=== PATIENT | male | born 1940 | race Caucasian/White ===

== ENCOUNTER → 2024-01-31 12:52 | Outpatient (REF) | payer MEDICARE, OTHER, SELFPAY | LOC: DHCBC HW 12:52 | PROVIDERS: ATTENDING PHYSICIAN Internal Medicine; FAMILY PHYSICIAN Internal Medicine Geriatric Medicine | DX: I25.5 Ischemic cardiomyopathy (principal); I10 Essential (primary) hypertension; I25.10 Atherosclerotic heart disease of native coronary artery without angina pectoris | CPT/HCPCS: 93306 ==

== ENCOUNTER → 2024-03-03 10:56 | Outpatient (REF) | payer MEDICARE, OTHER, SELFPAY ==
[2024-03-03 11:50] LABS: % Basophils 1.6 % (0-2); % Eosinophils 5.5 % (0-6); % Lymphocytes 22.9 % (20.5-51.1); % Monocytes 13.9 % (1.7-9.3); % Neutrophils 56.1 % (42.2-75.2); Absolute Basophils 0.1 10^3/uL (0-0.2); Absolute Eosinophils 0.2 10^3/uL (0-0.7); Absolute Lymphocytes 0.7 10^3/uL (1.2-3.4); Absolute Monocytes 0.4 10^3/uL (0.1-0.6); Absolute Neutrophils 1.7 10^3/uL (1.4-6.5); Hemoglobin 13.5 g/dL (13.0-18.0); Mean Corp Hgb Conc. 32.9 g/dL (33.0-37.0); Mean Corpuscular Hgb 29.9 pg (27.0-31.0); Mean Corpuscular Volume 90.7 fL (80.0-94.0); Mean Platelet Volume 10.6 fL (7.4-10.4); Nucleated Red Blood Cells % 0 % (-); Platelet Count 144 10^3/uL (130-400); Red Blood Cell Count 4.52 10^6/uL (4.70-6.10); Red Cell Dist. Width 13.2 % (11.5-14.5); White Blood Cell Count 3.1 10^3/uL (4.8-10.8)
[2024-03-03 12:26] LABS: ALT (SGPT) 20 U/L (0-50); AST (SGOT) 31 U/L (17-59); Alkaline Phosphatase 80 U/L (38-126); Blood Urea Nitrogen 19 mg/dl (9-20); Calcium 9.7 mg/dl (8.4-10.2); Carbon Dioxide 26 mmol/L (22-30); Chloride 104 mmol/L (98-107); Glucose 156 mg/dl (70-99); HDL Cholesterol 50 mg/dl; LDL Cholesterol, Calculated 48 mg/dl; Potassium 4.3 mmol/L (3.5-5.1); Sodium 139 mmol/L (135-145); Total Bilirubin 0.6 mg/dl (0.2-1.3); Total Cholesterol 130 mg/dl (50-199); Total Protein 6.6 g/dl (6.3-8.2); Triglyceride 164 mg/dl (10-149); Very Low Density Lipoprotein 32 mg/dl (0-30); eGFR > 60.00
[2024-03-03 12:55] LABS: PSA, Total - Diagnostic < 0.06 ng/ml (0.0-4.0)
[2024-03-03 12:56] LABS: Glycohemoglobin (HgbA1c) 6.6 % (4.0-5.6)
[2024-03-03 12:57] LABS: Testosterone, Total 19.9 ng/dl (72-623)
== END ==
LOC: REG 10:56
PROVIDERS: ATTENDING PHYSICIAN Internal Medicine; FAMILY PHYSICIAN Internal Medicine Geriatric Medicine
DX: I25.10 Atherosclerotic heart disease of native coronary artery without angina pectoris (principal); F41.1 Generalized anxiety disorder; E11.9 Type 2 diabetes mellitus without complications; I10 Essential (primary) hypertension; E78.2 Mixed hyperlipidemia; I48.0 Paroxysmal atrial fibrillation; I49.5 Sick sinus syndrome; Z95.0 Presence of cardiac pacemaker; H25.89 Other age-related cataract; C61 Malignant neoplasm of prostate; K62.7 Radiation proctitis; Z13.89 Encounter for screening for other disorder; K22.70 Barrett's esophagus without dysplasia; D50.0 Iron deficiency anemia secondary to blood loss (chronic); G47.33 Obstructive sleep apnea (adult) (pediatric)
CPT/HCPCS: 36415; 80053; 80061; 83036; 84153; 84403; 84681; 85025

== ENCOUNTER → 2024-03-18 06:23 | Day surgery (SDC) | payer MEDICARE, BC, SELFPAY ==
[2024-03-18 09:06] LABS: Glucose - Point of Care 164 mg/dl (70-99)
== END ==
LOC: GI 06:23
PROVIDERS: ATTENDING PHYSICIAN Specialist
DX: K22.710 Barrett's esophagus with low grade dysplasia (principal); Z53.8 Procedure and treatment not carried out for other reasons; R03.0 Elevated blood-pressure reading, without diagnosis of hypertension
CPT/HCPCS: 43235; 82962; G0378

== ENCOUNTER 2024-06-01 14:57 | Emergency (ER) | payer MEDICARE, BC, SELFPAY ==
[2024-06-01 15:05] VITALS: BP 122/70
--- NOTE | 2024-06-01 17:30 | ED.GENMED ---
History of Present Illness
General
Chief Complaint: Fall
Time Seen by Provider: 06/01/24 17:26
History of Present Illness
History of Present Illness:
83-year-old female presents the emergency department for evaluation of right chest wall/flank pain beginning after falling into his kitchen table yesterday. Pain is worse with movement or with deep breathing. Denies any hematuria or abdominal
bruising. Does not take any blood thinners
Past History
Past History
ED Past Medical History: CAD, Cancer (Prostate), HTN, NIDDM, Psychiatric and Other (DIABETES, atrial flutter with ablation, TIA, hyperlipidemia, polio with postpolio syndrome, obstructive sleep apnea, bipolar disorder)
ED Past Surgical History: Cardiac (Bypass surgery pacemaker stent in 2008) and Orthopedic
Social History
Tobacco: Non-smoker
Alcohol: None
Drug: None
Personal:
Living: with family
Employment: Retired
Family History
Family History: Other (Noncontributory)
Review of Systems
Review of Systems
Allergies reviewed?: Yes
All Other Systems: ROS reviewed and negative except as documented in HPI and ROS
Phy Exam
Physical Exam
Physical Exam:
GEN: Well appearing, NAD, WDWN
HEENT: Oral mucosa moist, no scleral icterus
Cardiac: Regular rate
Lung: No respiratory distress, no tachypnea, lungs clear to auscultation bilaterally
Chest: No obvious ecchymosis or deformities. There is tenderness to the right inferior/posterior chest wall
MSK: No gross deformity or injuries
Skin: Good color, no pallor or jaundice, no rashes
Neuro: AO x3, moves all extremities freely
Psych: Calm, cooperative
Course
Orders/Labs/Results
Orders:
Orders
06/01/24 17:30
CR Ribs-right 3 Vw W/pa Chest* Urgent
Comment:
Reason For Exam: R rib injury
06/01/24 17:59
Acetaminophen [Tylenol] 650 mg PO NOW STA
Lidocaine [Lidocaine 4% Patch] 1 patch TOPICAL NOW STA
Apply Lidocaine patch(s) to:: R flank
06/01/24 18:15
Ketorolac [Toradol] 30 mg IM NOW STA
Oxycodone [Roxicodone] 5 mg PO NOW STA
06/01/24 19:08
CT Chest W/o Iv Contrast Urgent
Comment:
Reason For Exam: R chest wall injury
06/01/24 22:26
Oxycodone [Roxicodone] 5 mg PO NOW STA
Vital Signs
Initial and Last Documented VS:
Initial Vital Signs
Temp Pulse Resp Pulse Ox
97.5 F 76 20 96
06/01/24 14:59 06/01/24 14:59 06/01/24 14:59 06/01/24 14:59
Last Documented Vital Signs
Temp Pulse Resp BP Pulse Ox
97.5 F 75 18 123/78 95
06/01/24 14:59 06/01/24 19:07 06/01/24 19:07 06/01/24 19:07 06/01/24 19:07
MDM/Problems Addressed
MDM/Problems Addressed:
83 yo male presents with right leg pain after a fall. He was identified to have 2 nondisplaced rib fractures.
No e/o Pneumothorax. Discussed supportive care, patient is amenable to discharge to home and does not wish to be admitted for pain control
*Critical Care Note
Total Time (30-74mins, 75-104mins- exclusive of procedures): Not Applicable
ED Attending Note
-
Portions of this chart may have been created with voice recognition software.� Occasional wrong word or��sound alike� substitutions may have occurred due to the inherent limitations of voice recognition software.
Discharge Plan
Departure
Patient Disposition: Home (Routine Discharge)
Date of Disposition: 06/01/24
Time of Disposition: 22:32
Patient with high blood pressure during this ER visit?: No
Discharge Problem:
Right rib fracture
Instructions: Rib fractures in adults
Prescriptions:
New
oxycodone 5 mg tablet
5 mg PO Q8H PRN (Reason: Pain) Qty: 10 0RF
No Action
rabeprazole [AcipHex] 20 MG tablet,delayed release (DR/EC)
20 mg PO BID
quetiapine 100 MG tablet
150 mg PO HS
rosuvastatin 20 MG tablet
20 mg PO QPM
alprazolam 1 MG tablet extended release 24 hr
1 mg PO DAILY
bupropion HCl 150 MG tablet extended release 24 hr
300 mg PO DAILY
Victoza 18mg/3ml
12 unit SC DAILY
aspirin [Catrachita Chewable Aspirin] 81 MG tablet,chewable
81 mg PO HS
L.acidoph, paracasei,B. lactis 1 EACH capsule
1 ea PO DAILY
ascorbic acid (vitamin C) [Vitamin C] 1,000 mg Tablet
2 g PO QPM
alprazolam 1 mg Tablet
1 mg PO HS
lamotrigine 150 mg Tablet
300 mg PO QPM
cyanocobalamin (vitamin B-12) [Vitamin B-12] 1,000 mcg Tablet
1,000 mcg PO QPM
nitroglycerin 0.4 mg Tablet, Sublingual
0.4 mg SUBLINGUAL Q5-15M PRN (Reason: chest pain)
Patient Comments:
patient has never had to use this medication
metoprolol succinate 25 mg Tablet Extended Release 24 Hr
25 mg PO QPM
Humulin 70/30 U-100 KwikPen 100 unit/mL (70-30) Insulin Pen
12 unit SC BID
cholecalciferol (vitamin D3) [Vitamin D3] 25 mcg (1,000 unit) Tablet
1,000 unit PO QPM
Farxiga 10 mg Tablet
10 mg PO DAILY
Fibertabs Citracel
2 tab PO QPM
vitamin A
1 tab PO QPM
Activity Restrictions/Additional Instructions:
Incentive spirometer use 3-5 times per day for 1-2 weeks
Interventions
Interventions:
*Risk Screen - Suicide Last Done: 06/01/24 14:59
*General Assessment Last Done: 06/01/24 14:59
*Neglect/Abuse Screening Last Done: 06/01/24 14:59
ED-Musculoskeletal Assessment Last Done: 06/01/24 17:15
ED- Neurological Assessment Last Done: 06/01/24 17:15
ED-Skin Assessment Last Done: 06/01/24 17:15
Discharge Date and Time
Print Language: CITIZEN OF [place]
[2024-06-01] MEDS: TYLENOL 650 MG PO (18:05)
[2024-06-01] MEDS: LIDOCAINE 4% PATCH 1 PATCH TOPICAL (18:05)
[2024-06-01] MEDS: ROXICODONE 5 MG PO ×2 (18:20→22:38)
[2024-06-01] MEDS: TORADOL 30 MG IM (18:20)
[2024-06-01 19:07] VITALS: BP 123/78
== END 2024-06-01 23:13 | disposition home or self-care (01) ==
LOC: EMR 14:57
PROVIDERS: EMERGENCY PHYSICIAN Emergency Medicine; FAMILY PHYSICIAN Internal Medicine Geriatric Medicine
DX: S22.41XA Multiple fractures of ribs, right side, initial encounter for closed fracture (principal); M79.604 Pain in right leg; W01.190A Fall on same level from slipping, tripping and stumbling with subsequent striking against furniture, initial encounter; E11.9 Type 2 diabetes mellitus without complications; E78.5 Hyperlipidemia, unspecified; I10 Essential (primary) hypertension; G47.33 Obstructive sleep apnea (adult) (pediatric); F31.9 Bipolar disorder, unspecified; I25.10 Atherosclerotic heart disease of native coronary artery without angina pectoris; I48.92 Unspecified atrial flutter; G14 Postpolio syndrome; Z95.0 Presence of cardiac pacemaker; Z95.5 Presence of coronary angioplasty implant and graft; Z95.1 Presence of aortocoronary bypass graft; Z85.46 Personal history of malignant neoplasm of prostate; Z86.73 Personal history of transient ischemic attack (TIA), and cerebral infarction without residual deficits; Z88.0 Allergy status to penicillin; Z88.2 Allergy status to sulfonamides; Z88.8 Allergy status to other drugs, medicaments and biological substances; Z88.6 Allergy status to analgesic agent; Z91.041 Radiographic dye allergy status
CPT/HCPCS: 99284; 96372; 71101; 71250

== ENCOUNTER 2024-06-24 06:19 | Day surgery (SDC) | payer MEDICARE, BC, SELFPAY ==
[2024-06-24 08:31] VITALS: BMI 31.5
[2024-06-24 08:44] VITALS: BP 126/79
[2024-06-24 08:55] LABS: Glucose - Point of Care 134 mg/dl (70-99)
[2024-06-24 09:12] VITALS: BMI 31.5
[2024-06-24 10:05] VITALS: BP 108/70
[2024-06-24 10:15] VITALS: BP 116/65
[2024-06-24 10:30] VITALS: BP 132/69
== END 2024-06-24 11:00 | disposition home or self-care (01) ==
LOC: SDS 06:19
PROVIDERS: ATTENDING PHYSICIAN Specialist
DX: C15.9 Malignant neoplasm of esophagus, unspecified (principal); K22.711 Barrett's esophagus with high grade dysplasia
CPT/HCPCS: 43239; 88305; 82962

== ENCOUNTER → 2024-07-17 15:32 | Outpatient (REF) | payer MEDICARE, BC, SELFPAY ==
[2024-07-17 16:34] LABS: % Basophils 1.4 % (0-2); % Eosinophils 3.6 % (0-6); % Immature Granulocytes 0.3 % (0-0.5); % Lymphocytes 15.7 % (20.5-51.1); Absolute Basophils 0.1 10^3/uL (0-0.2); Absolute Eosinophils 0.1 10^3/uL (0-0.7); Absolute Lymphocytes 0.6 10^3/uL (1.2-3.4); Absolute Monocytes 0.5 10^3/uL (0.1-0.6); Absolute Neutrophils 2.4 10^3/uL (1.4-6.5); Hematocrit 43.8 % (39.0-52.0); Hemoglobin 14.1 g/dL (13.0-18.0); Mean Corp Hgb Conc. 32.2 g/dL (33.0-37.0); Mean Corpuscular Hgb 29.1 pg (27.0-31.0); Mean Corpuscular Volume 90.5 fL (80.0-94.0); Mean Platelet Volume 10.6 fL (7.4-10.4); Nucleated Red Blood Cells % 0 % (-); Platelet Count 136 10^3/uL (130-400); Red Blood Cell Count 4.84 10^6/uL (4.70-6.10); Red Cell Dist. Width 13.9 % (11.5-14.5); White Blood Cell Count 3.6 10^3/uL (4.8-10.8)
[2024-07-17 17:13] LABS: ALT (SGPT) 14 U/L (0-50); AST (SGOT) 28 U/L (17-59); Alkaline Phosphatase 96 U/L (38-126); Blood Urea Nitrogen 18 mg/dl (9-20); Calcium 9.9 mg/dl (8.4-10.2); Carbon Dioxide 28 mmol/L (22-30); Chloride 102 mmol/L (98-107); Direct Bilirubin 0.2 mg/dl (0.0-0.4); Glucose 73 mg/dl (70-99); Potassium 4.4 mmol/L (3.5-5.1); Sodium 141 mmol/L (135-145); Total Bilirubin 0.5 mg/dl (0.2-1.3); Total Protein 6.7 g/dl (6.3-8.2); eGFR > 60.00
[2024-07-17 17:39] LABS: CEA 1.39 ng/ml
== END ==
LOC: REG 15:32
PROVIDERS: ATTENDING PHYSICIAN Internal Medicine Hematology & Oncology; FAMILY PHYSICIAN Internal Medicine Geriatric Medicine
DX: C15.5 Malignant neoplasm of lower third of esophagus (principal)
CPT/HCPCS: 36415; 80048; 80076; 82378; 85025

== ENCOUNTER → 2024-08-04 13:36 | Outpatient (REF) | payer MEDICARE, BC, SELFPAY ==
[2024-08-04 15:43] LABS: PSA, Total - Diagnostic < 0.06 ng/ml (0.0-4.0)
[2024-08-04 15:46] LABS: Testosterone, Total 22.1 ng/dl (72-623)
== END ==
LOC: REG 13:36
PROVIDERS: ATTENDING PHYSICIAN Radiology Radiation Oncology; FAMILY PHYSICIAN Internal Medicine Geriatric Medicine
DX: C61 Malignant neoplasm of prostate (principal)
CPT/HCPCS: 36415; 84153; 84403

== ENCOUNTER → 2025-02-16 15:08 | Outpatient (REF) | payer MEDICARE, OTHER, SELFPAY | LOC: HWRCS 15:08 | PROVIDERS: ATTENDING PHYSICIAN Internal Medicine; FAMILY PHYSICIAN Internal Medicine Geriatric Medicine | DX: I25.810 Atherosclerosis of coronary artery bypass graft(s) without angina pectoris (principal); I25.5 Ischemic cardiomyopathy; I48.21 Permanent atrial fibrillation; I77.810 Thoracic aortic ectasia | CPT/HCPCS: 93306 ==

== ENCOUNTER → 2025-02-24 13:17 | Outpatient (REF) | payer MEDICARE, OTHER, SELFPAY ==
[2025-02-24 14:15] LABS: Urine Albumin 2+ (Neg - Trace); Urine Bilirubin Negative (Negative); Urine Character Clear (Clear); Urine Color Yellow; Urine Glucose 4+ (Negative); Urine Ketone Negative (Negative); Urine Leukocyte Negative (Negative); Urine Nitrite Negative (Negative); Urine Occult Blood Negative (Negative); Urine Specific Gravity 1.015 (<1.030); Urine Urobilinogen Negative (Neg - 1+)
[2025-02-24 14:33] LABS: % Basophils 1.2 % (0-2); % Eosinophils 5.1 % (0-6); % Lymphocytes 18.7 % (20.5-51.1); % Monocytes 13.6 % (1.7-9.3); % Neutrophils 61.4 % (42.2-75.2); Absolute Eosinophils 0.1 10^3/uL (0-0.7); Absolute Lymphocytes 0.5 10^3/uL (1.2-3.4); Absolute Monocytes 0.4 10^3/uL (0.1-0.6); Absolute Neutrophils 1.6 10^3/uL (1.4-6.5); Hematocrit 43.5 % (39.0-52.0); Hemoglobin 13.7 g/dL (13.0-18.0); Mean Corp Hgb Conc. 31.5 g/dL (33.0-37.0); Mean Corpuscular Volume 92.2 fL (80.0-94.0); Mean Platelet Volume 10.6 fL (7.4-10.4); Nucleated Red Blood Cells % 0 % (-); Platelet Count 131 10^3/uL (130-400); Red Blood Cell Count 4.72 10^6/uL (4.70-6.10); White Blood Cell Count 2.6 10^3/uL (4.8-10.8)
[2025-02-24 14:41] LABS: ALT (SGPT) 16 U/L (0-50); AST (SGOT) 24 U/L (17-59); Albumin 3.9 g/dl (3.5-5.0); Alkaline Phosphatase 80 U/L (38-126); Blood Urea Nitrogen 18 mg/dl (9-20); Calcium 9.9 mg/dl (8.4-10.2); Carbon Dioxide 31 mmol/L (22-30); Chloride 104 mmol/L (98-107); Glucose 133 mg/dl (70-99); HDL Cholesterol 63 mg/dl; LDL Cholesterol, Calculated 63 mg/dl; Potassium 4.8 mmol/L (3.5-5.1); Sodium 144 mmol/L (135-145); Total Bilirubin 0.5 mg/dl (0.2-1.3); Total Cholesterol 146 mg/dl (50-199); Total Protein 6.6 g/dl (6.3-8.2); Triglyceride 100 mg/dl (10-149); Very Low Density Lipoprotein 20 mg/dl (0-30); eGFR > 60.00
[2025-02-24 14:45] LABS: Urine Squamous Cell 16-20 /LPF (Few)
[2025-02-24 14:57] LABS: Vitamin D, 25-OH*** 29.5 ng/mL (30-80)
[2025-02-24 19:11] LABS: Microalbumin, Random Urine 9.6 mg/dl (0.6-1.7); Microalbumin/creatinine Ratio 157.1 mg/g
[2025-02-25 10:21] LABS: Glycohemoglobin (HgbA1c) 5.3 % (4.0-5.6)
== END ==
LOC: REG 13:17
PROVIDERS: ATTENDING PHYSICIAN Internal Medicine Geriatric Medicine
DX: E11.9 Type 2 diabetes mellitus without complications (principal); I48.0 Paroxysmal atrial fibrillation; I10 Essential (primary) hypertension; E78.2 Mixed hyperlipidemia; F41.1 Generalized anxiety disorder; I25.10 Atherosclerotic heart disease of native coronary artery without angina pectoris; I49.5 Sick sinus syndrome; Z95.0 Presence of cardiac pacemaker; C61 Malignant neoplasm of prostate; Z13.89 Encounter for screening for other disorder; K22.70 Barrett's esophagus without dysplasia; D50.0 Iron deficiency anemia secondary to blood loss (chronic); G47.33 Obstructive sleep apnea (adult) (pediatric); F32.4 Major depressive disorder, single episode, in partial remission; E29.1 Testicular hypofunction; I50.20 Unspecified systolic (congestive) heart failure
CPT/HCPCS: 36415; 80053; 80061; 81003; 81015; 82043; 82306; 82570; 83036; 85025

== ENCOUNTER → 2025-05-27 16:27 | Outpatient (REF) | payer MEDICARE, OTHER, SELFPAY | LOC: RAD 16:27 | PROVIDERS: ATTENDING PHYSICIAN Internal Medicine; FAMILY PHYSICIAN Internal Medicine Geriatric Medicine | DX: R60.9 Edema, unspecified (principal); I87.9 Disorder of vein, unspecified | CPT/HCPCS: 93971 ==

== ENCOUNTER 2025-07-23 12:28 | Outpatient (RCR) | payer MEDICARE, BC, SELFPAY | END 2025-07-23 23:59 | disposition home or self-care (01) | LOC: RPT 12:28 | PROVIDERS: ATTENDING PHYSICIAN Student in an Organized Health Care Education/Training Program; FAMILY PHYSICIAN Internal Medicine Geriatric Medicine | DX: M79.672 Pain in left foot (principal); M21.372 Foot drop, left foot; Z73.6 Limitation of activities due to disability; R26.2 Difficulty in walking, not elsewhere classified; M62.81 Muscle weakness (generalized); R26.89 Other abnormalities of gait and mobility; Z86.12 Personal history of poliomyelitis; R29.6 Repeated falls | CPT/HCPCS: 97162; 97530 ==

== ENCOUNTER 2025-07-27 15:04 | Emergency (ER) | payer MEDICARE, BC, SELFPAY ==
[2025-07-27 15:12] VITALS: BP 97/66
--- NOTE | 2025-07-27 19:23 | ED.MUSCINJ ---
HPI-Injury
General
Chief Complaint: Fall
Source: patient
Exam Limitations: none
Time Seen by Provider: 07/27/25 18:15
Nursing documentation reviewed up to this point in time: agreed with
History of Present Illness-Injury
Is this injury a work related problem?: No
Is pt an associate of [facility]?: No
Initial Injury comments:
Patient to ED after trip and fall walking into hospital He was bringing his to ED for evaluation and tripped. Hit head on floor. No LOC. Complains of pain to low back, right hip, and bilateral knees. Incident occurred just [employer]
Past History
Past History
ED Past Medical History: CAD, Cancer (Prostate), HTN, NIDDM, Psychiatric and Other (DIABETES, atrial flutter with ablation, TIA, hyperlipidemia, polio with postpolio syndrome, obstructive sleep apnea, bipolar disorder)
ED Past Surgical History: Cardiac (Bypass surgery pacemaker stent in 2008) and Orthopedic
Social History
Tobacco: Non-smoker
Alcohol: None
Drug: None
Personal:
Living: with family
Employment: Retired
Family History
Family History: Other (Noncontributory)
Review of Systems
Review of Systems
Allergies reviewed?: Yes
All Other Systems: ROS reviewed and negative except as documented in HPI and ROS
Constitutional: Reports no symptoms
EENT: Reports no symptoms
Respiratory: Reports no symptoms
Cardiac: Reports no symptoms
ABD/GI: Reports no symptoms
: Reports no symptoms
Musculoskeletal: Reports joint pain (pain to bilateral ant. knees, right hip)
Skin: Reports other (abrasions bilateral anterior knees)
Neurological: Reports no symptoms
Psychiatric: Reports no symptoms
Musculoskeletal Injury Exam
Musculoskeletal Injury Exam
Right Hip:
Pain with Movement?: Mild
Tender to palpation?: Mild
Soft tissue swelling?: None
External deformity and angulation?: None
Joint effusion?: None
Contusion?: None
Hematoma-local bleeding into tissue?: None
Strain- Sprain- Tear (Connective tissue injury)?: Mild
Crepitus with movement?: No
Joint instability?: No
Malalignment/deformity?: No
Range of motion: Full
Distal skin color and temperature: normal-warm & good color
Capillary Refill: normal
Normal distal neurovascular exam?: Yes
Bilateral Anterior Knee:
Pain with Movement?: Moderate
Tender to palpation?: Moderate
Soft tissue swelling?: Mild
External deformity and angulation?: None
Joint effusion?: None
Contusion?: Moderate
Hematoma-local bleeding into tissue?: Mild
Strain- Sprain- Tear (Connective tissue injury)?: None
Crepitus with movement?: No
Joint instability?: No
Malalignment/deformity?: No
Range of motion: Full
Distal skin color and temperature: normal-warm & good color
Capillary Refill: normal
Normal distal neurovascular exam?: Yes
Bilateral Lower Back:
Pain with Movement?: Moderate
Tender to palpation?: Mild
Soft tissue swelling?: None
External deformity and angulation?: None
Joint effusion?: None
Contusion?: None
Hematoma-local bleeding into tissue?: None
Strain- Sprain- Tear (Connective tissue injury)?: Moderate
Crepitus with movement?: No
Joint instability?: No
Malalignment/deformity?: No
Range of motion: Limited
Distal skin color and temperature: normal-warm & good color
Capillary Refill: normal
Normal distal neurovascular exam?: Yes
Phy Exam
General Physical Exam
General Presentation: well appearing and mild distress
General age: appears stated age
General Skin: warm and dry
General Habitus: normal
General Mental: alert
Cardiovascular Exam
Cardiovascular Exam: regular rate/rhythm and no edema
Pulmonary Exam
Pulmonary Exam: no respiratory distress and chest non tender
Neurological Exam
Neurological Exam: alert, oriented x3, CN II-XII intact, no motor deficits, no sensory deficits and speech normal
Musculoskeletal Exam
Musculoskeletal Exam: full ROM and neuro vasc intact
Skin Exam
Skin Exam: normal color, warm/dry and no rash
Psychiatric Exam
Psychiatric Exam: normal mood/affect
Injury Course
Orders/Labs/Results
Orders:
Orders
07/27/25 15:23
CT Head W/o Iv Contrast Urgent
Comment:
Reason For Exam: fall
CR Knee - Left 4 Or More View* Urgent
Comment:
Reason For Exam: fall
CR Knee- Right 4 Or More View* Urgent
Comment:
Reason For Exam: fall
CR Lumbar Spine Comp Min 4 Vw* Urgent
Comment:
Reason For Exam: fall
07/27/25 15:40
Hip, Right 2-3 Views [CR Hip - RT w/wo Pel 2-3 Vw*] Urgent
Comment:
Reason For Exam: fall
Include a pelvis x-ray?: Yes
*Radiology
Radiology exam reviewed: radiology read reviewed
*Pulse Oximetry
SaO2: 98
Oxygen Mode of Delivery: Room air
Patient hypoxic: no
*Critical Care Note
Total Time (30-74mins, 75-104mins- exclusive of procedures): Not Applicable
Update Note
Update Note:
Patient to ED after trip and fall while walking into hospital. VSS, CT head neg for acute findings. No fracture noted to back, hip, knees. Able to ambulate safely with walker. He has a walker at home. Will discharge home, will follow up with
PCP this week.
ED Attending Note
-
Portions of this chart may have been created with voice recognition software.� Occasional wrong word or��sound alike� substitutions may have occurred due to the inherent limitations of voice recognition software.
Discharge Plan
Departure
Patient Disposition: Home (Routine Discharge)
Date of Disposition: 07/27/25
Time of Disposition: 18:30
Patient with high blood pressure during this ER visit?: No
Condition: Good
Covid-19: Not Applicable
Discharge Problem:
Acute pain of right hip, Contusion of knee, Abrasion of knee
Instructions: Wound Care (DC), Head Injury in Adults (DC), Contusion (DC), Preventing falls in adults
Prescriptions:
New
oxycodone 5 mg capsule
5 mg PO Q8H PRN (Reason: Pain) Qty: 10 0RF
No Action
rabeprazole [AcipHex] 20 MG tablet,delayed release (DR/EC)
20 mg PO BID
quetiapine 100 MG tablet
150 mg PO HS
rosuvastatin 20 MG tablet
20 mg PO QPM
alprazolam 1 MG tablet extended release 24 hr
1 mg PO DAILY
bupropion HCl 150 MG tablet extended release 24 hr
300 mg PO DAILY
aspirin [Catrachita Chewable Aspirin] 81 MG tablet,chewable
81 mg PO HS
L.acidoph,paracasei,B.animalis 1 EACH capsule
1 ea PO DAILY
ascorbic acid (vitamin C) [Vitamin C] 1,000 mg Tablet
2 g PO QPM
alprazolam 1 mg Tablet
1 mg PO HS
lamotrigine 150 mg Tablet
300 mg PO QPM
cyanocobalamin (vitamin B-12) [Vitamin B-12] 1,000 mcg Tablet
1,000 mcg PO QPM
nitroglycerin 0.4 mg Tablet, Sublingual
0.4 mg SUBLINGUAL Q5-15M PRN (Reason: chest pain)
Patient Comments:
patient has never had to use this medication
Humulin 70/30 U-100 KwikPen 100 unit/mL (70-30) Insulin Pen
12 unit SC BID
cholecalciferol (vitamin D3) [Vitamin D3] 25 mcg (1,000 unit) Tablet
1,000 unit PO QPM
dapagliflozin propanediol [Farxiga] 10 mg Tablet
10 mg PO DAILY
Fibertabs Citracel
2 tab PO QPM
vitamin A
1 tab PO QPM
Ozempic
1 mg SC WEEKLY
Referrals:
Mitesh Roe MD [Active, Orthopedics] - Call in 1-3 days for appt
Interventions
Interventions:
*Risk Screen - Suicide Last Done: 07/27/25 15:12
*General Assessment Last Done: 07/27/25 15:12
*Neglect/Abuse Screening Last Done: 07/27/25 15:12
*ED- Fall Risk Assessment Last Done: 07/27/25 19:07
*ED COVID-19 Vaccine History Last Done: 07/27/25 18:57
*Nursing Disposition Last Done: 07/27/25 19:07
ED-Musculoskeletal Assessment Last Done: 07/27/25 18:56
ED- Neurological Assessment Last Done: 07/27/25 18:56
ED-Skin Assessment Last Done: 07/27/25 18:56
Discharge Date and Time
Discharge Date/Time: 07/27/25 19:08
Print Language: MAURITANIAN
== END 2025-07-27 19:08 | disposition home or self-care (01) ==
LOC: EMR 15:04
PROVIDERS: EMERGENCY PHYSICIAN Emergency Medicine; FAMILY PHYSICIAN Internal Medicine Geriatric Medicine
DX: M25.551 Pain in right hip (principal); S80.00XA Contusion of unspecified knee, initial encounter; S80.219A Abrasion, unspecified knee, initial encounter; W19.XXXA Unspecified fall, initial encounter; E11.9 Type 2 diabetes mellitus without complications; I25.810 Atherosclerosis of coronary artery bypass graft(s) without angina pectoris; I10 Essential (primary) hypertension; E78.5 Hyperlipidemia, unspecified; G47.33 Obstructive sleep apnea (adult) (pediatric); F31.9 Bipolar disorder, unspecified; G14 Postpolio syndrome; Z79.82 Long term (current) use of aspirin; Z79.4 Long term (current) use of insulin; Z79.84 Long term (current) use of oral hypoglycemic drugs; Z86.73 Personal history of transient ischemic attack (TIA), and cerebral infarction without residual deficits; Z95.1 Presence of aortocoronary bypass graft; Z95.0 Presence of cardiac pacemaker; Z95.5 Presence of coronary angioplasty implant and graft; Z85.46 Personal history of malignant neoplasm of prostate
CPT/HCPCS: 99284; 70450; 72110; 73502; 73564

== ENCOUNTER → 2025-08-06 09:21 | Outpatient (REF) | payer MEDICARE, BC, SELFPAY | LOC: DHSLP 09:21 | PROVIDERS: ATTENDING PHYSICIAN Internal Medicine Critical Care Medicine; FAMILY PHYSICIAN Internal Medicine Geriatric Medicine | DX: G47.33 Obstructive sleep apnea (adult) (pediatric) (principal); G47.61 Periodic limb movement disorder | CPT/HCPCS: 95811 ==

== ENCOUNTER 2025-09-03 08:36 | Outpatient (RCR) | payer MEDICARE, OTHER, SELFPAY | END 2025-09-03 23:59 | disposition home or self-care (01) | LOC: RPT 08:36 | PROVIDERS: ATTENDING PHYSICIAN Student in an Organized Health Care Education/Training Program; FAMILY PHYSICIAN Internal Medicine Geriatric Medicine | DX: M79.672 Pain in left foot (principal); M21.372 Foot drop, left foot; Z73.6 Limitation of activities due to disability; R26.2 Difficulty in walking, not elsewhere classified; M62.81 Muscle weakness (generalized); R26.89 Other abnormalities of gait and mobility; Z86.12 Personal history of poliomyelitis; R29.6 Repeated falls | CPT/HCPCS: 97110; 97112; 97530 ==

== ENCOUNTER 2025-09-24 08:17 | Outpatient (RCR) | payer MEDICARE, OTHER, SELFPAY | END 2025-09-24 23:59 | disposition home or self-care (01) | LOC: RPT 08:17 | PROVIDERS: ATTENDING PHYSICIAN Student in an Organized Health Care Education/Training Program; FAMILY PHYSICIAN Internal Medicine Geriatric Medicine | DX: M79.672 Pain in left foot (principal); M21.372 Foot drop, left foot; Z73.6 Limitation of activities due to disability; R26.2 Difficulty in walking, not elsewhere classified; M62.81 Muscle weakness (generalized); R26.89 Other abnormalities of gait and mobility; Z86.12 Personal history of poliomyelitis; R29.6 Repeated falls | CPT/HCPCS: 97110; 97112; 97530 ==

== ENCOUNTER 2025-09-24 12:27 | Emergency (ER) | payer MEDICARE, BC, SELFPAY ==
[2025-09-24] VITALS (10 sets, daily range): BP systolic 92–127; BP diastolic 44–91; PULSE 72–80
[2025-09-24 13:13] LABS: Hematocrit 41.9 % (39.0-52.0); Hemoglobin 13.4 g/dL (13.0-18.0); Mean Corp Hgb Conc. 32.0 g/dL (33.0-37.0); Mean Corpuscular Volume 89.0 fL (80.0-94.0); Nucleated Red Blood Cells % 0 % (-); Platelet Count 146 10^3/uL (130-400); Red Cell Dist. Width 13.2 % (11.5-14.5)
[2025-09-24 13:28] LABS: ALT (SGPT) 16 U/L (0-50); AST (SGOT) 23 U/L (17-59); Albumin 4.1 g/dl (3.5-5.0); Alkaline Phosphatase 79 U/L (38-126); Blood Urea Nitrogen 27 mg/dl (9-20); Calcium 9.4 mg/dl (8.4-10.2); Carbon Dioxide 28 mmol/L (22-30); Chloride 101 mmol/L (98-107); Glucose 140 mg/dl (70-99); Potassium 4.3 mmol/L (3.5-5.1); Sodium 133 mmol/L (135-145); Total Protein 7.2 g/dl (6.3-8.2); eGFR > 60.00
[2025-09-24] MEDS: NSS 1000 IV (15:19)
[2025-09-24 15:42] LABS: Urine Character Clear (Clear)
--- NOTE | 2025-09-24 15:50 | ED.GENMED ---
History of Present Illness
General
Chief Complaint: Blood Pressure Problem
Time Seen by Provider: 09/24/25 14:29
Nursing documentation reviewed up to this point in time: agreed with
History of Present Illness
History of Present Illness:
85-year-old male presents to the ER for evaluation of feeling lightheaded while at physical therapy today. Patient reports that his blood pressure is typically low but he states that he was very lightheaded and his systolic member was in 90s with
the diastolic in the 40s. Patient states he has been trying to be mindful of his fluid intake given his prior cardiac history. He is not on any diuretics. He states that his urine output has been decreasing over the past few days. No fevers. No
chills. No nausea or vomiting. Patient denies diarrhea. He denies peripheral edema. He denies chest pain. Patient was at physical therapy due to progressive weakness in his left lower extremity due to polio.
His prior medical history includes prior OR, CABG, pacer with Watchman device implantation, diabetes and chronic left lower extremity weakness.
Past History
Past History
ED Past Medical History: CAD, Cancer (Prostate), HTN, NIDDM, Psychiatric and Other (DIABETES, atrial flutter with ablation, TIA, hyperlipidemia, polio with postpolio syndrome, obstructive sleep apnea, bipolar disorder)
ED Past Surgical History: Cardiac (Bypass surgery pacemaker stent in 2008) and Orthopedic
Social History
Tobacco: Non-smoker
Alcohol: None
Drug: None
Personal:
Living: with family
Employment: Retired
Family History
Family History: Other (Noncontributory)
Review of Systems
Review of Systems
Allergies reviewed?: Yes
Phy Exam
Physical Exam
Physical Exam:
Patient is awake, alert, appears in no acute distress, head is NCAT, PERRL, EOMI mucous membranes tacky, conjunctiva pink, heart regular rate and rhythm without murmurs or ectopy, lungs are clear to auscultation without wheezes rales or rhonchi, no
JVD, abdomen is soft and nontender on palpation, extremities without edema, GCS is 15
Course
Orders/Labs/Results
Orders:
Orders
09/24/25 12:33
EKG [Electrocardiogram (*1)] Urgent
Reason for Study: Vertigo / Dizzy
EKG- Treatment ONCE
09/24/25 13:02
CBC/With Diff [Complete Blood Count/With Diff] Urgent
Comprehensive Metabolic Panel Urgent
09/24/25 14:30
0.9% Sodium Chloride 1000 ml [Nss] 1,000 ml IV BOLUS
09/24/25 15:27
Urinalysis Reflex To Culture Urgent
Date Specimen was Collected: 09/24/25
Time Specimen was Collected: 15:19
Urine Microscopic Reflex Cult Urgent
Abnormal Lab Results
09/24/25 09/24/25
13:02 15:27
WBC 4.1 L 10^3/uL
(4.8-10.8)
MCHC 32.0 L g/dL
(33.0-37.0)
MPV 10.5 H fL
(7.4-10.4)
Absolute Lymphs (auto) 0.6 L 10^3/uL
(1.2-3.4)
Lymphocytes % 13.3 L %
(20.5-51.1)
Monocytes % 11.6 H %
(1.7-9.3)
Sodium 133 L mmol/L
(135-145)
BUN 27 H mg/dl
(9-20)
Glucose 140 H mg/dl
(70-99)
Urine Glucose 4+ A
(Negative)
Urine Albumin (Reflex) 1+ A
(Neg - Trace)
09/24/25 13:02
09/24/25 13:02
Mild increase in BUN compared to labs from 02/24/2025. CBC reassuring. Kidney function preserved. Urinalysis does not reveal infection, glucose is in the urine without ketones.
Vital Signs
Initial and Last Documented VS:
Initial Vital Signs
Temp Pulse Resp BP Pulse Ox
97.3 F 73 16 105/91 98
09/24/25 12:31 09/24/25 12:31 09/24/25 12:31 09/24/25 12:31 09/24/25 12:31
Last Documented Vital Signs
Temp Pulse Resp BP Pulse Ox
97.3 F 77 19 127/88 98
09/24/25 12:31 09/24/25 17:45 09/24/25 17:45 09/24/25 17:38 09/24/25 17:00
MDM/Problems Addressed
Differential Diagnosis Includes:
Differential diagnosis considered but not limited to dehydration, electrolyte dyscrasia, occult infection along with other etiologies considered
Chronic conditions affecting care:
Polio, ACS, diabetes
*Pulse Oximetry
SaO2: 99
Oxygen Mode of Delivery: Room air
Patient hypoxic: no
*EKG
Interpreted by ED Provider?: Yes (I independently viewed and interpreted twelve-lead EKG showing paced rhythm, rate 73, leftward axis, no ST elevation, abnormal EKG without evidence for acute ischemia, no significant change compared to prior from
10/12/2023)
*Access Rep Interpretation
Rate: other (I independently viewed and interpreted rhythm strip showing paced rhythm, no ectopy)
*Critical Care Note
Total Time (30-74mins, 75-104mins- exclusive of procedures): Not Applicable
Data Reviewed
Review of Other/Old Records Reveals: Testing (I reviewed most recent echocardiogram from 02/16/2025-patient has normal LV chamber size and function with mildly decreased EF measured at 40%. Patient also has stage II diastolic dysfunction, aortic
sclerosis with mild regurg)
Update Note
Update Note:
Patient ordered IV fluids. He was given a meal tray. I discussed with patient and his labs concerning for mild dehydration, no other acute process. He was also able to void spontaneously which did not show significant concentration. Will
reassess ambulatory trial after IV fluids infused
1811: Patient feeling much better after IV fluid hydration. Able to ambulate without any recurrent lightheadedness. Blood pressure also improved-127/88. I discussed with patient and present at bedside plan for discharge home. They feel
comfortable with this plan and have no questions at the current time.
ED Attending Note
-
Portions of this chart may have been created with voice recognition software.� Occasional wrong word or��sound alike� substitutions may have occurred due to the inherent limitations of voice recognition software.
Discharge Plan
Departure
Patient Disposition: Home (Routine Discharge)
Date of Disposition: 09/24/25
Time of Disposition: 18:11
Patient with high blood pressure during this ER visit?: No
Discharge Problem:
Acute dehydration, Light-headedness
Instructions: Dehydration in adults - ED (DC)
Prescriptions:
No Action
rabeprazole [AcipHex] 20 MG tablet,delayed release (DR/EC)
20 mg PO BID
quetiapine 100 MG tablet
150 mg PO HS
rosuvastatin 20 MG tablet
20 mg PO QPM
alprazolam 1 MG tablet extended release 24 hr
1 mg PO DAILY
bupropion HCl 150 MG tablet extended release 24 hr
300 mg PO DAILY
aspirin [Catrachita Chewable Aspirin] 81 MG tablet,chewable
81 mg PO HS
L.acidoph,paracasei,B.animalis 1 EACH capsule
1 ea PO DAILY
ascorbic acid (vitamin C) [Vitamin C] 1,000 mg Tablet
2 g PO QPM
alprazolam 1 mg Tablet
1 mg PO HS
lamotrigine 150 mg Tablet
300 mg PO QPM
cyanocobalamin (vitamin B-12) [Vitamin B-12] 1,000 mcg Tablet
1,000 mcg PO QPM
nitroglycerin 0.4 mg Tablet, Sublingual
0.4 mg SUBLINGUAL Q5-15M PRN (Reason: chest pain)
Patient Comments:
patient has never had to use this medication
Humulin 70/30 U-100 KwikPen 100 unit/mL (70-30) Insulin Pen
12 unit SC BID
cholecalciferol (vitamin D3) [Vitamin D3] 25 mcg (1,000 unit) Tablet
1,000 unit PO QPM
dapagliflozin propanediol [Farxiga] 10 mg Tablet
10 mg PO DAILY
Fibertabs Citracel
2 tab PO QPM
vitamin A
1 tab PO QPM
Ozempic
1 mg SC WEEKLY
oxycodone 5 mg capsule
5 mg PO Q8H PRN (Reason: Pain) Qty: 10 0RF
oxycodone 5 mg tablet
5 mg PO Q8H PRN (Reason: Pain) Qty: 10 0RF
Referrals:
Jacques Wilkins MD [Family Provider, Internal Medicine]
Activity Restrictions/Additional Instructions:
Encourage fluids. Continue current medications. Please follow-up with your doctor on Saturday for reevaluation and further care. Return to the ER for any concerns
Interventions
Interventions:
*Risk Screen - Suicide Last Done: 09/24/25 12:31
*General Assessment Last Done: 09/24/25 15:31
*Neglect/Abuse Screening Last Done: 09/24/25 12:31
*ED- Fall Risk Assessment Last Done: 09/24/25 15:31
*ED COVID-19 Vaccine History Last Done: 09/24/25 15:31
*ED Influenza Vaccine History Last Done: 09/24/25 15:31
ED- Cardiac Assessment Last Done: 09/24/25 15:31
ED- Neurological Assessment Last Done: 09/24/25 15:31
ED- Pulmonary Assessment Last Done: 09/24/25 15:31
Discharge Date and Time
Print Language: ARMENIAN
[2025-09-24 16:51] LABS: Urine Red Blood Cell 0-2 /HPF (0-2); Urine Squamous Cell 0-2 /LPF (Few); Urine White Cell 0-2 /HPF (0-5)
== END 2025-09-24 18:35 | disposition home or self-care (01) ==
LOC: EMR 12:27
PROVIDERS: Student in an Organized Health Care Education/Training Program; EMERGENCY PHYSICIAN Emergency Medicine; FAMILY PHYSICIAN Internal Medicine Geriatric Medicine
DX: E86.0 Dehydration (principal); E11.9 Type 2 diabetes mellitus without complications; I25.810 Atherosclerosis of coronary artery bypass graft(s) without angina pectoris; I70.0 Atherosclerosis of aorta; I35.1 Nonrheumatic aortic (valve) insufficiency; I10 Essential (primary) hypertension; E78.5 Hyperlipidemia, unspecified; I25.2 Old myocardial infarction; G14 Postpolio syndrome; G47.33 Obstructive sleep apnea (adult) (pediatric); F31.9 Bipolar disorder, unspecified; Z79.84 Long term (current) use of oral hypoglycemic drugs; Z79.4 Long term (current) use of insulin; Z79.82 Long term (current) use of aspirin; Z86.73 Personal history of transient ischemic attack (TIA), and cerebral infarction without residual deficits; Z95.1 Presence of aortocoronary bypass graft; Z95.0 Presence of cardiac pacemaker; Z95.5 Presence of coronary angioplasty implant and graft; Z85.46 Personal history of malignant neoplasm of prostate
CPT/HCPCS: 99284; 96360; 96361; 80053; 81003; 81015; 85025; 93005

== ENCOUNTER → 2025-10-09 07:57 | Outpatient (REF) | payer MEDICARE, OTHER, SELFPAY ==
[2025-10-09 09:33] LABS: Hematocrit 43.1 % (39.0-52.0); Hemoglobin 13.8 g/dL (13.0-18.0); Mean Corp Hgb Conc. 32.0 g/dL (33.0-37.0); Mean Corpuscular Volume 89.2 fL (80.0-94.0); Nucleated Red Blood Cells % 0 % (-); Platelet Count 133 10^3/uL (130-400); Red Cell Dist. Width 13.6 % (11.5-14.5)
[2025-10-09 09:54] LABS: ALT (SGPT) 16 U/L (0-50); AST (SGOT) 26 U/L (17-59); Albumin 4.1 g/dl (3.5-5.0); Alkaline Phosphatase 88 U/L (38-126); Blood Urea Nitrogen 22 mg/dl (9-20); Calcium 9.7 mg/dl (8.4-10.2); Carbon Dioxide 31 mmol/L (22-30); Chloride 102 mmol/L (98-107); Glucose 105 mg/dl (70-99); HDL Cholesterol 61 mg/dl; LDL Cholesterol, Calculated 68 mg/dl; Potassium 4.3 mmol/L (3.5-5.1); Sodium 138 mmol/L (135-145); Total Protein 7.1 g/dl (6.3-8.2); Very Low Density Lipoprotein 22 mg/dl (0-30); eGFR > 60.00
[2025-10-09 10:08] LABS: Vitamin D, 25-OH*** 14.0 ng/mL (30-80)
[2025-10-09 10:10] LABS: Urine Character Clear (Clear)
[2025-10-09 11:03] LABS: Glycohemoglobin (HgbA1c) 5.9 % (4.0-5.9)
[2025-10-09 11:54] LABS: Urine Red Blood Cell None Seen /HPF (0-2); Urine Squamous Cell None seen /LPF (Few); Urine White Cell None Seen /HPF (0-5)
== END ==
LOC: REG 07:57
PROVIDERS: ATTENDING PHYSICIAN Internal Medicine Geriatric Medicine
DX: E11.9 Type 2 diabetes mellitus without complications (principal); I50.32 Chronic diastolic (congestive) heart failure; I10 Essential (primary) hypertension; I48.0 Paroxysmal atrial fibrillation; I25.10 Atherosclerotic heart disease of native coronary artery without angina pectoris; D50.0 Iron deficiency anemia secondary to blood loss (chronic); F41.1 Generalized anxiety disorder; G47.33 Obstructive sleep apnea (adult) (pediatric); I50.20 Unspecified systolic (congestive) heart failure; E55.9 Vitamin D deficiency, unspecified; I35.1 Nonrheumatic aortic (valve) insufficiency; K21.9 Gastro-esophageal reflux disease without esophagitis; Z13.31 Encounter for screening for depression
CPT/HCPCS: 36415; 80053; 80061; 81003; 81015; 82306; 83036; 85025

== ENCOUNTER → 2025-10-29 13:02 | Outpatient (REF) | payer MEDICARE, OTHER, SELFPAY | LOC: RCS 13:02 | PROVIDERS: ATTENDING PHYSICIAN Internal Medicine; FAMILY PHYSICIAN Internal Medicine Geriatric Medicine | DX: I25.810 Atherosclerosis of coronary artery bypass graft(s) without angina pectoris (principal); I25.10 Atherosclerotic heart disease of native coronary artery without angina pectoris; I35.1 Nonrheumatic aortic (valve) insufficiency | CPT/HCPCS: 93306; Q9950 ==